=== PATIENT | female | born 1985 ===

== ENCOUNTER 2020-08-28 08:00 | Outpatient (REF) | payer BC, SELFPAY ==
[2020-08-28 10:30] LABS: Hematocrit 28.3 % (37-47); Hemoglobin 7.7 g/dl (12.0-16.0); Mean Corpuscular HGB Conc 27.2 g/dl (31.0-35.0); Mean Corpuscular Hemoglobin 19.8 pg (27.0-33.0); Mean Corpuscular Volume 72.8 fL (80-98); Mean Platelet Volume 11.6 fL (9.4-12.3); Platelet Count 620 X10*3/uL (160-400); Red Blood Count 3.89 X10*6/uL (4.20-5.50); Red Cell Distribution Width 22.6 % (11.0-16.0)
[2020-08-28 11:40] LABS: HCG Quantitative < 2 mIU/mL
[2020-08-28 18:22] LABS: CT PCR NOT DETECTED (Not Detect.)
[2020-08-28 18:23] LABS: NG PCR NOT DETECTED (Not Detect.)
== END 2020-08-28 08:01 | disposition home or self-care (01) ==
LOC: HO.LAB 08:00
PROVIDERS: PCP Internal Medicine; Visit Provider Obstetrics & Gynecology
DX: D21.9 Benign neoplasm of connective and other soft tissue, unspecified (principal); N92.1 Excessive and frequent menstruation with irregular cycle
CPT/HCPCS: 36415; 84443; 84702; 85027; 87491; 87591

== ENCOUNTER 2020-09-04 10:21 | Outpatient (REF) | payer BC, SELFPAY ==
--- NOTE | 2020-09-04 10:24 | US_ITS ---
EXAMINATION: ULTRASOUND PELVIS COMPLETE. CLINICAL INFORMATION: Pelvic and perineal pain. COMPARISON: None TECHNIQUE: Transabdominal and transvaginal ultrasound the pelvis is performed. FINDINGS: On transabdominal ultrasound the uterus is anteverted measuring 14.0 cm in length, 9.6 cm in AP and 11.2 cm in transverse dimension. There are at least 5 uterine fibroids visualized. 1. Fibroid right upper body of uterus measures 4.6 x 3.4 x 3.6 cm. 2. Fibroid in the midline upper uterus measures 4.4 x 3.4 x 3.7 cm. 3. Fibroid in the left body of uterus measures 1.7 x 1.7 1.9 cm. 4. Fibroid in the central fundus measures 2.8 x 1.6 x 3.0 cm. 5. Fibroid in the lower left body of the uterus measures 2.3 x 1.9 x 3.4 cm. The endometrium is not clearly visualized. The cervix is closed. Right ovary measures 3.8 x 3.4 x 3.0 cm and volume 20.0 mL. There appears unremarkable. Left ovary seen on transverse ultrasound measures 4.7 x 2.2 x 3.1 cm and volume 16.8 mL. There is small amount of free fluid in the cul-de-sac. US/US transvaginal IMPRESSION: Multiple uterine fibroids as described above. Ovaries are unremarkable. Small amount of free fluid in the cul-de-sac. The cervix
--- NOTE | 2020-09-04 10:24 | US_ITS ---
EXAMINATION: ULTRASOUND PELVIS COMPLETE. CLINICAL INFORMATION: Pelvic and perineal pain. COMPARISON: None TECHNIQUE: Transabdominal and transvaginal ultrasound the pelvis is performed. FINDINGS: On transabdominal ultrasound the uterus is anteverted measuring 14.0 cm in length, 9.6 cm in AP and 11.2 cm in transverse dimension. There are at least 5 uterine fibroids visualized. 1. Fibroid right upper body of uterus measures 4.6 x 3.4 x 3.6 cm. 2. Fibroid in the midline upper uterus measures 4.4 x 3.4 x 3.7 cm. 3. Fibroid in the left body of uterus measures 1.7 x 1.7 1.9 cm. 4. Fibroid in the central fundus measures 2.8 x 1.6 x 3.0 cm. 5. Fibroid in the lower left body of the uterus measures 2.3 x 1.9 x 3.4 cm. The endometrium is not clearly visualized. The cervix is closed. Right ovary measures 3.8 x 3.4 x 3.0 cm and volume 20.0 mL. There appears unremarkable. Left ovary seen on transverse ultrasound measures 4.7 x 2.2 x 3.1 cm and volume 16.8 mL. There is small amount of free fluid in the cul-de-sac. US/US pelvic complete IMPRESSION: Multiple uterine fibroids as described above. Ovaries are unremarkable. Small amount of free fluid in the cul-de-sac. The cervix
== END 2020-09-04 10:22 | disposition home or self-care (01) ==
LOC: HO.HMGCX 10:21
PROVIDERS: PCP Internal Medicine; Visit Provider Advanced Practice Midwife
DX: D21.9 Benign neoplasm of connective and other soft tissue, unspecified (principal); N92.1 Excessive and frequent menstruation with irregular cycle
CPT/HCPCS: 76830; 76856

== ENCOUNTER 2020-09-20 08:43 | Outpatient (REF) | payer BC, SELFPAY | END 2020-09-20 08:44 | disposition home or self-care (01) | LOC: HO.LAB 08:43 | PROVIDERS: Visit Provider Obstetrics & Gynecology | DX: N92.1 Excessive and frequent menstruation with irregular cycle (principal) | CPT/HCPCS: 58100; 88305 ==

== ENCOUNTER → 2020-10-04 15:05 | Outpatient (BNVA) | payer BC, SELFPAY | PROVIDERS: Visit Provider Obstetrics & Gynecology | DX: Z76.89 Persons encountering health services in other specified circumstances (principal) ==

== ENCOUNTER → 2020-11-07 11:03 | Outpatient (BNVA) | payer BC, SELFPAY | PROVIDERS: PCP Internal Medicine; Visit Provider Obstetrics & Gynecology ==

== ENCOUNTER 2020-12-04 10:48 | Outpatient (REF) | payer BC, SELFPAY ==
[2020-12-04 12:01] LABS: Hematocrit 38.4 % (37-47); Hemoglobin 11.5 g/dl (12.0-16.0); Mean Corpuscular HGB Conc 29.9 g/dl (31.0-35.0); Mean Corpuscular Hemoglobin 23.9 pg (27.0-33.0); Mean Corpuscular Volume 79.8 fL (80-98); Mean Platelet Volume 10.6 fL (9.4-12.3); Platelet Count 426 X10*3/uL (160-400); Red Blood Count 4.81 X10*6/uL (4.20-5.50); Red Cell Distribution Width 13.2 % (11.0-16.0); White Blood Count 4.8 X10*3/uL (4.8-10.8)
== END 2020-12-04 10:49 | disposition home or self-care (01) ==
LOC: HO.LAB 10:48
PROVIDERS: PCP Internal Medicine; Visit Provider Obstetrics & Gynecology
DX: N92.1 Excessive and frequent menstruation with irregular cycle (principal); D64.9 Anemia, unspecified; J45.909 Unspecified asthma, uncomplicated; Z88.0 Allergy status to penicillin; Z79.899 Other long term (current) drug therapy
CPT/HCPCS: 36415; 85027

== ENCOUNTER → 2021-03-20 14:13 | Outpatient (BNVA) | payer BC, SELFPAY | PROVIDERS: PCP Internal Medicine; Visit Provider Obstetrics & Gynecology ==

== ENCOUNTER 2021-10-30 15:03 | Outpatient (REF) | payer BC, SELFPAY ==
[2021-11-02 07:42] LABS: HPV mRNA E6/E7 rflx Not Detected (Not Detected)
== END 2021-10-30 15:04 | disposition home or self-care (01) ==
LOC: HO.LAB 15:03
PROVIDERS: PCP Internal Medicine; Visit Provider Obstetrics & Gynecology
DX: Z01.419 Encounter for gynecological examination (general) (routine) without abnormal findings (principal); D21.9 Benign neoplasm of connective and other soft tissue, unspecified; N93.9 Abnormal uterine and vaginal bleeding, unspecified
CPT/HCPCS: 87624; 88142

== ENCOUNTER 2021-11-26 10:45 | Outpatient (REF) | payer BC, SELFPAY ==
--- NOTE | ~2021-11-26 | US_ITS ---
EXAMINATION: US PELVIS CLINICAL INFORMATION: Bleeding. COMPARISON: None TECHNIQUE: Ultrasound of the pelvis is performed using both transabdominal and transvaginal transducers along with Doppler. Transvaginal imaging is performed due to inadequate visualization transabdominally. FINDINGS: Uterus: The uterus is anteverted, anteflexed, heterogeneous and measures 13.6 x 9.7 x 10.6 cm. The double wall endometrial thickness is 0.8 cm. The uterus is smooth in contour and has normal myometrial echogenicity. There are multiple hypoechoic lesions consistent with fibroid seen. 1. Lesion in the upper right body of uterus measures 4.3 x 4.0 x 3.2 cm. 2. The lesion in the submucosal region measuring 5.9 x 3.9 x 5.2 cm. Previously it measured 4.4 x 3.4 x 3.7 cm. The fibroid has grown in size. 3. Lesion in the left body of uterus measures 2.2 x 1.6 x 2.1 cm. Previously measured 1.7 x 1.7 x 1.9 seen. 4. Lesion in the central fundus measures 3.5 x 1.7 x 5.6 cm. Previously measured 2.8 x 1.6 x 3.0 cm. 5. Lesion in the left body of uterus measures 3.5 x 2.5 x 2.7 cm. Previously it measured 2.3 x 1.9 x 3.4 cm. Adnexa: Both ovaries are visualized. There is normal color flow to the adnexa. There is no ovarian torsion. There is no pelvic ascites or fluid collection. Right ovary measures 2.0 x 1.6 x 2.0 cm and volume 3.4 mL. It appears unremarkable. Left ovary measures 3.8 x 2.3 x 2.5 cm and volume 11.4 mL. There is anechoic simple cyst measuring 2.4 x 2.0 x 2.4 cm. US/US pelvic and transvaginal IMPRESSION: Multiple uterine fibroids. The submucosal fibroid #2 has grown in size. Simple cyst left ovary.
== END 2021-11-26 10:46 | disposition home or self-care (01) ==
LOC: HO.US 10:45
PROVIDERS: PCP Internal Medicine; Visit Provider Obstetrics & Gynecology
DX: D21.9 Benign neoplasm of connective and other soft tissue, unspecified (principal); N93.9 Abnormal uterine and vaginal bleeding, unspecified
CPT/HCPCS: 76830; 76856

== ENCOUNTER → 2021-12-10 11:23 | Outpatient (BNVA) | payer BC, SELFPAY | PROVIDERS: Visit Provider Obstetrics & Gynecology | DX: D21.9 Benign neoplasm of connective and other soft tissue, unspecified (principal) | CPT/HCPCS: Q3014 ==